=== PATIENT | female | born 1935 ===

== ENCOUNTER 2019-03-08 10:16 | Inpatient (IN) | payer BC ==
[~2019-03-08] VITALS: Ht 147.3 cm; Wt 49.4 kg
[~2019-03-08 10:16] MED LIST: ACETAMINOPHEN500 M3 ORAL
[2019-03-31] VITALS (15 sets, daily range): BP systolic 91–164; BP diastolic 42–88
--- NOTE | 2019-03-31 11:27 | Anethesia Preoperative Eval ---
Anesthesia Pre-op PMH/ROS General Date of Evaluation: Mar 31, 2019 Anesthesiologist: Martin ASA Score: ASA 3 Mallampati Score Class I : Soft palate, uvula, fauces, pillars visible Class II: Soft palate, uvula, fauces visible Class III: Soft palate, base of uvula visible Class IV: Only hard plate visible Mallampati Classification: Class II Surgeon: Boo Diagnosis: Left knee OA Surgical Procedure: Left TKR Anesthesia History: none Family History: no anesthesia problems Allergies: Coded Allergies: No Known Allergies (Unverified , 03/30/19) Medications: see eMAR Patient NPO?: Yes NPO Date: Mar 30, 2019 NPO Time: 22:00 Past Medical History Cardiovascular: Reports: HTN; Denies: CAD, [place], valve dz, arrhythmia, other Pulmonary: Denies: asthma, COPD, L[place], other Gastrointestinal/Genitourinary: Denies: GERD, CRI, ESRD, other Neurologic/Psychiatric: Reports: depression/anxiety; Denies: dementia, CVA, TIA, other Endocrine: Denies: DM, hypothyroidism, steroids, other HEENT: Denies: cataract (L), cataract (R), glaucoma, [place] (L), [place] (R), other Hematology/Immune: Denies: anemia, DVT, bleeding disorder, other Musculoskeletal/Integumentary: Reports: OA, other - lumbar stenosis; Denies: RA, DJD, DDD, edema PSxH Narrative: bilateral cataract sx Anesthesia Pre-op Phys. Exam Physician Exam see chart Constitutional: NAD Cardiovascular: RRR Respiratory: CTA Airway Exam Mallampati Score: Class II MO: full ROM: full Anesthesia Pre-op A/P Labs see chart Studies Pre-op Studies: EKG - sr Risk Assessment & Plan Assessment: ASA II Plan: GA vs SAB Status Change Before Surgery: No Pre-Antibiotics Drug: Kayla Holden MD Mar 31, 2019 11:27
[2019-03-31] MEDS ORDERED: Lidocaine 1% MPF 10mg/ml 5ml ONE (12:00)
[2019-03-31] MEDS ORDERED: Propofol 200mg/20ml IV ONE (12:00)
[2019-03-31] MEDS ORDERED: Midazolam 2mg/2ml Inj ONE (12:00)
[2019-03-31] MEDS ORDERED: fentaNYL 100 mcg/2 mL IV ONE (12:00)
[2019-03-31] MEDS ORDERED: NeoSporin Gu Irrig 1ml Amp IRRIG ONE ×2 (12:08→13:16)
[2019-03-31] MEDS ORDERED: Bacitracin 50000 Units Vial ONE (12:08)
[2019-03-31] MEDS ORDERED: Bupivacaine 0.5% Inj 30 ml vial INJ ONE (12:39)
[2019-03-31] MEDS ORDERED: NKM (12:42)
[2019-03-31] MEDS ORDERED: Morphine Sulfate PF 10 ML ONE (12:50)
--- NOTE | 2019-03-31 12:54 | Pre-Procedure Note/Attestation ---
Pre-Procedure Note/Attestation Complete Prior to Procedure Planned Procedure: left Procedure Narrative: left knee replacement Indications for Procedure Pre-Operative Diagnosis: left knee arthritis Attestation I attest that I discussed the nature of the procedure; its benefits; risks and complications; and alternatives (and the risks and benefits of such alternatives ), prior to the procedure, with the patient (or the patient's legal videotape sales representative). I attest that, if there was a reasonable possibility of needing a blood transfusion, the patient (or the patient's legal videotape sales representative) was given the [facility] standardized written summary, pursuant to the [place] Blood Safety Act ([place] Health and Safety Code # 1645, as amended). I attest that I re-evaluated the patient just prior to the surgery and that there has been no change in the patient's H&P, except as documented below: Antonio Haddad MD Mar 31, 2019 12:54
[2019-03-31] MEDS ORDERED: Sterile Water Irrig 1000ml IRRIG ONE (13:00)
[2019-03-31] MEDS ORDERED: LR 1000ml ONE (13:00)
[2019-03-31] MEDS ORDERED: Tranexamic Acid 500 MG in NS 55 ML IV SCH (13:00)
[2019-03-31] MEDS ORDERED: NS Irrig 1000ml ONE (13:00)
[2019-03-31] MEDS ORDERED: NS Irrig 4000ml IRRIG ONE (13:16)
[2019-03-31] MEDS ORDERED: NS Irrig 2000ml IRRIG ONE ×2 (13:16→14:00)
[2019-03-31] MEDS ORDERED: Bacitracin 50000 Units Vial IRRIG ONE (13:16)
[2019-03-31] MEDS ORDERED: Morphine Sulfate 2mg/ml Inj(IV/IM USE ONLY) IVP PRN ×2 (13:30)
[2019-03-31] MEDS ORDERED: LR 1000ml 1,000 ML IVLG SCH (13:37)
[2019-03-31] MEDS ORDERED: fentaNYL 100 mcg/2 mL IV PRN (13:45)
[2019-03-31] MEDS ORDERED: Metoclopramide 10mg/2ml Inj IVP PRN (13:45)
[2019-03-31] MEDS ORDERED: DiphenhydrAMINE 50mg/ml Inj IVP PRN (13:45)
[2019-03-31] MEDS ORDERED: Ketorolac 30mg Inj IV PRN (13:45)
[2019-03-31] MEDS ORDERED: LORazepam Inj 2mg/ml 1ml IV PRN (13:45)
[2019-03-31] MEDS ORDERED: Hydromorphone 0.5mg/0.5ml inj IVP PRN (13:45)
[2019-03-31] MEDS ORDERED: cloNIDine 1000mcg/10ml inj ONE (13:51)
--- NOTE | 2019-03-31 13:57 | Diagnostic Imaging Report ---
Indication: Left knee pain Technique: 3 views of the 03/31/2019 knee Comparison: None Findings: There is severe degenerative joint space narrowing of the medial compartment. There is degenerative remodeling and subchondral sclerosis of both the medial patellar and medial tibial articular surfaces. There are also degenerative changes of the patellofemoral compartment. No acute fractures. No dislocations. No definite suprapatellar effusion. Calcification projects posterior to the lateral proximal tibia, may be a bursal calcification. Impression: Degenerative changes, as described No definite acute bony trauma
--- NOTE | 2019-03-31 14:43 | Immediate Post-Op Evaluation ---
Immediate Post-Op Evalulation Immediate Post-Op Evalulation Procedure: Left total knee replacement Date of Evaluation: Mar 31, 2019 Time of Evaluation: 14:46 IV Fluids: 700 Blood Products: 0 Estimated Blood Loss: 50 Urinary Output: 100 Blood Pressure Systolic: 108 Blood Pressure Diastolic: 79 Pulse Rate: 70 Respiratory Rate: 18 O2 Sat by Pulse Oximetry: 100 Temperature (Fahrenheit): 98.1 Pain Score (1-10): 0 Nausea: No Vomiting: No Complications 0 Patient Status: awake, reacts, patent, none Hydration Status: adequate Drug: Ancef 1g Given Within 1 Hr of Incision: Yes Kayla Mcclelland MD Mar 31, 2019 14:43
[2019-03-31] MEDS ORDERED: HYDROcodone/Acetamin 10/325 tab ORAL PRN (16:00)
[2019-03-31] MEDS ORDERED: LORazepam 0.5mg tab ORAL PRN (16:00)
[2019-03-31] MEDS ORDERED: HYDROmorphone 1mg/ml Carpuject SUBQ PRN (16:00)
--- NOTE | 2019-03-31 16:30 | Diagnostic Imaging Report ---
Indication: Status post knee arthroplasty Technique: 2 views of the left knee Comparison: 03/31/2019 Findings: Interim total knee arthroplasty. Good anatomic alignment of the prosthesis. Overlying skin boy. Retained air from the surgical exposure is seen within the soft tissues. There is a knee immobilizer in place. Impression: Status post total knee arthroplasty. No unusual features
--- NOTE | 2019-03-31 16:35 | NUR ---
CASE MANAGEMENT: INITIAL REVIEW 83 YO F PRESENTED TO HOSPITAL FOR SURGERY SI:LEFT KNEE MEDIAL COMPARTMENT OA. T 97 HR 62 RR 18 B/P 164/88 SATS 99% ON RA NO LABS TODAY IS: OR MEDS PATIENT ADMITTED 03/31/2019 @ 0589 PATIENT TO BE DISCHARGED TO HOME ONCE MEDICALLY CLEARED. PLAN OF CARE: LEFT KNEE TOTAL REPLACEMENT Addendum: 03/31/19 at 1639 by Lena York CM INTERQUAL MET
--- NOTE | 2019-03-31 16:41 | NUR ---
NURSE NOTES: PATIENT ARRIVED FROM PACU ON BED WITH SON AT BEDSIDE. PATIENT AOX4. LEFT KNEE SURGICAL SITE C/D/I. KNEE IMMOBILIZER IN PLACE. CAP REFILL LESS THAN 3 SECS.MILD SENSATION NOTED TO HIP AREA BUT DENIES PAIN. HEAD TO TOE ASSESSMENT COMPLETED. BEDSIDE REPORT RECEIVED FROM [place] EXTENSION AGENT. PT AND FAMILY ORIENTED TO ROOM. BED IN LOWEST AND LOCKED POSITION. VSS. AFEBRILE.
--- NOTE | 2019-03-31 17:25 | NUR ---
NURSE NOTES: PLACED CALL TO DR. MARIE TO INFORM OF PATIENT'S ARRIVAL TO FLOOR. NO NEEDS AT THIS TIME.
[2019-03-31] MEDS: Docusate 100mg cap ORAL SCH (18:19)
[2019-03-31] MEDS: D5 1/2NS w/KCl 20mEq 1,000 ML IV SCH (18:20)
--- NOTE | 2019-03-31 18:41 | NUR ---
NURSE NOTES: PATIENT MORE AWAKE. TOLERATING REGULAR DIET. NO N/V NOTED. DENIES PAIN TO SURGICAL SITE.
--- NOTE | 2019-03-31 19:31 | NUR ---
HAND-OFF: Report given to PAULA ALVARENGA RN.
--- NOTE | 2019-03-31 19:35 | NUR ---
NURSE NOTES: Dr. Huang is here to see pt with new order for NS Bolus 500ml x 1.
--- NOTE | 2019-03-31 19:36 | Cardiology Progress Note ---
Assessment/Plan Assessment/Plan low bp will bolus ns for 500 cc will dicate note watch cbc in am [id number] Objective Last 24 Hour Vital Signs Date Time Temp Pulse Resp B/P (MAP) Pulse Ox O2 Delivery O2 Flow Rate FiO2 03/31/19 18:35 68 16 101/52 (68) 98 03/31/19 18:00 100/49 (66) 03/31/19 17:41 97.0 70 15 97/68 (78) 98 03/31/19 16:41 98.4 55 15 91/49 (63) 100 03/31/19 16:11 58 18 101/50 (67) 100 03/31/19 16:11 Nasal Cannula 2.0 03/31/19 16:00 97.8 54 24 105/42 100 Nasal Cannula 3 03/31/19 15:45 54 25 106/44 100 Nasal Cannula 3 03/31/19 15:30 57 23 105/45 100 Nasal Cannula 3 03/31/19 15:15 56 22 101/44 100 Nasal Cannula 3 03/31/19 15:00 62 20 102/42 100 Nasal Cannula 3 03/31/19 14:50 64 21 105/45 100 Nasal Cannula 3 03/31/19 14:45 72 20 97/50 100 Simple Mask 6 03/31/19 14:43 70 18 100 03/31/19 14:41 98.1 70 18 108/79 100 Simple Mask 6 03/31/19 12:37 Room Air 03/31/19 12:34 97.0 62 18 164/88 (113) 99 German Huang MD Mar 31, 2019 19:36
--- NOTE | 2019-03-31 19:36 | NUR ---
NURSE NOTES: Received report & pt from ELMA Munguia. Pt lying in bed, a&ox4, in room air, family member at bedside. No s/s of acute distress & no c/o pain at this time. Surgical dressing C/D/I. IV site intact with IVF running as ordered. CPM in place & tolerating 60 degrees. Bed in lowest position, call light within reach. Will continue to monitor.
[2019-03-31] MEDS: ceFAZolin sod 1 GM in D5W 55 ML IV SCH (20:19)
[2019-03-31] MEDS: Hydromorphone 0.5mg/0.5ml inj IVP PRN (21:43)
[2019-04-01] VITALS: BP 104/67
[2019-04-01 04:00] VITALS: BP 124/61
[2019-04-01] MEDS: ceFAZolin sod 1 GM in D5W 55 ML IV SCH (04:10)
[2019-04-01] MEDS: Hydromorphone 0.5mg/0.5ml inj IVP PRN (06:47)
[2019-04-01] MEDS: D5 1/2NS w/KCl 20mEq 1,000 ML IV SCH ×3 (07:10→13:29)
--- NOTE | 2019-04-01 07:32 | NUR ---
HAND-OFF: Report given to ELMA Wilson. Pain med & zofran given. Rounds done. Pt in stable condition.
--- NOTE | 2019-04-01 07:35 | NUR ---
NURSE NOTES:BEDSIDE ROUNDS WITH PAULA WILLS.PATIENT A/OX4,ROOM AIR,PAIN 03/20,WAS JUST MEDICATED,LEFT KNEE DRSNG.C/D/I.ABLE TO WIGGLE TOES.IV SITE PATENT.DENTON WITH GOOD OUTPUT.WILL CONTINUE PLAN OF CARE.SON AT BEDSIDE FOR SUPPORTIVE CARE.
[2019-04-01 08:00] VITALS: BP 106/64
[2019-04-01] MEDS ORDERED: Hydromorphone 0.5mg/0.5ml inj IVP PRN ×2 (08:00→10:00)
[2019-04-01] MEDS ORDERED: HYDROcodone/Acetamin 5/325 tab ORAL SCH (08:15)
[2019-04-01] MEDS: Docusate 100mg cap ORAL SCH ×2 (08:43→18:25)
[2019-04-01 08:51] LABS: BASOPHILS % (AUTO) 0.7 % (0.0-2.0); EOSINOPHILS % (AUTO) 0.2 % (0.0-3.0); HEMATOCRIT 32.6 % (37.0-47.0); HEMOGLOBIN 11.2 G/DL (12.0-16.0); LYMPHOCYTES % (AUTO) 17.7 % (20.0-45.0); MEAN CORPUSCULAR VOLUME 94 FL (80-99); MONOCYTES % (AUTO) 10.2 % (1.0-10.0); NEUTROPHILS % (AUTO) 71.2 % (45.0-75.0); PLATELET COUNT 181 K/UL (150-450); RED BLOOD COUNT 3.48 M/UL (4.20-5.40); RED CELL DISTRIBUTION WIDTH 13.2 % (11.6-14.8); WHITE BLOOD COUNT 10.5 K/UL (4.8-10.8)
[2019-04-01 08:55] LABS: INR 1.2 (0.9-1.1)
--- NOTE | 2019-04-01 09:48 | 48 Hour Post Anesthesia Eval ---
Post Anesthesia Evaluation Procedure: Left total knee replacement Date of Evaluation: Apr 01, 2019 Time of Evaluation: 09:47 Blood Pressure Systolic: 108 0: 72 Pulse Rate: 68 Respiratory Rate: 18 Temperature (Fahrenheit): 97.6 O2 Sat by Pulse Oximetry: 98 Airway: patent Nausea: No Vomiting: No Pain Intensity: 2 Hydration Status: adequate Cardiopulmonary Status: stable Mental Status/LOC: patient returned to baseline Follow-up Care/Observations: n/a Post-Anesthesia Complications: none Follow-up care needed: N/A Rashad Nino MD Apr 01, 2019 09:48
[2019-04-01] MEDS: Enoxaparin 40mg Inj SUBQ SCH (10:01)
--- NOTE | 2019-04-01 10:41 | Cardiology Progress Note ---
Assessment/Plan Assessment/Plan low bp knee osteoarthritis postop pain option regardign dc snf vs cri vs if has help to be dicd homw will d/w dr ervin bp is stable hgb is fine has jsut gotten out of bed parnell to be dcd d/w sonn dvt ppx lovenox Subjective Cardiovascular: Denies: chest pain, lightheadedness Respiratory: Denies: shortness of breath Gastrointestinal/Abdominal: Reports: nausea Genitourinary: Denies: burning Objective Last 24 Hour Vital Signs Date Time Temp Pulse Resp B/P (MAP) Pulse Ox O2 Delivery O2 Flow Rate FiO2 04/01/19 09:48 68 18 98 04/01/19 09:14 97.6 04/01/19 08:00 97.7 82 18 106/64 (78) 94 04/01/19 07:35 Room Air 04/01/19 04:00 97.8 79 18 124/61 (82) 96 04/01/19 00:00 98.6 87 17 104/67 (79) 95 03/31/19 21:00 Room Air 03/31/19 20:00 97.2 72 18 113/53 (73) 99 03/31/19 18:35 68 16 101/52 (68) 98 03/31/19 18:00 100/49 (66) 03/31/19 17:41 97.0 70 15 97/68 (78) 98 03/31/19 16:41 98.4 55 15 91/49 (63) 100 03/31/19 16:11 58 18 101/50 (67) 100 03/31/19 16:11 Nasal Cannula 2.0 03/31/19 16:00 97.8 54 24 105/42 100 Nasal Cannula 3 03/31/19 15:45 54 25 106/44 100 Nasal Cannula 3 03/31/19 15:30 57 23 105/45 100 Nasal Cannula 3 03/31/19 15:15 56 22 101/44 100 Nasal Cannula 3 03/31/19 15:00 62 20 102/42 100 Nasal Cannula 3 03/31/19 14:50 64 21 105/45 100 Nasal Cannula 3 03/31/19 14:45 72 20 97/50 100 Simple Mask 6 03/31/19 14:43 70 18 100 03/31/19 14:41 98.1 70 18 108/79 100 Simple Mask 6 03/31/19 12:37 Room Air 03/31/19 12:34 97.0 62 18 164/88 (113) 99 General Appearance: alert Neck: supple Cardiovascular: normal rate Respiratory/Chest: lungs clear Abdomen: normal bowel sounds, non tender, soft Extremities: no swelling Intake and Output 03/31/19 04/01/19 19:00 07:00 Intake Total 1050 ml 1140 ml Output Total 150 ml 1300 ml Balance 900 ml -160 ml Intake Oral 0 ml 240 ml IV Total 1050 ml 900 ml Output Urine Total 100 ml 1300 ml Estimated Blood Loss 50 ml # Voids 1 Laboratory Tests Test 04/01/19 07:37 White Blood Count 10.5 K/UL (4.8-10.8) Red Blood Count 3.48 M/UL (4.20-5.40) L Hemoglobin 11.2 G/DL (12.0-16.0) L Hematocrit 32.6 % (37.0-47.0) L Mean Corpuscular Volume 94 FL (80-99) Mean Corpuscular Hemoglobin 32.2 PG (27.0-31.0) H Mean Corpuscular Hemoglobin Concent 34.4 G/DL (32.0-36.0) Red Cell Distribution Width 13.2 % (11.6-14.8) Platelet Count 181 K/UL (150-450) Mean Platelet Volume 6.3 FL (6.5-10.1) L Neutrophils (%) (Auto) 71.2 % (45.0-75.0) Lymphocytes (%) (Auto) 17.7 % (20.0-45.0) L Monocytes (%) (Auto) 10.2 % (1.0-10.0) H Eosinophils (%) (Auto) 0.2 % (0.0-3.0) Basophils (%) (Auto) 0.7 % (0.0-2.0) Prothrombin Time 12.5 SEC (9.30-11.50) H Prothromb Time International Ratio 1.2 (0.9-1.1) H German Huang MD Apr 01, 2019 10:41
[2019-04-01 12:00] VITALS: BP 131/85
[2019-04-01] MEDS: HYDROcodone/Acetamin 5/325 tab ORAL PRN ×3 (12:03→20:46)
--- NOTE | 2019-04-01 13:59 | NUR ---
HAND-OFF: Report given to .KOBY WILLS.RE:CONTINUITY OF CARE.PATIENT STABLE ON REPORT.
--- NOTE | 2019-04-01 15:00 | NUR ---
NURSE NOTES: Received report from Katie WILLS. Patient is awake alert and oriented x4, no acute distress noted. Noted right hand IV out, patient accidentally self removed, new 22g RFA IV started. Dressing clean, dry, intact. Patient reporting pain, will medicate per order when due. Patient is on CPM now and tolerating well. Patient attempted to get up with physical therapy, but felt light headed when attempting to walk so PT put patient back in bed and on CPM. VS are stable. Patient and her son who is at bedside updated on plan of care. Side rails upx3, bed low and locked, call light in reach. Will continue to monitor.
[2019-04-01 16:00] VITALS: BP 142/106
--- NOTE | 2019-04-01 16:09 | NUR ---
PT Note PT erlin completed, treatment initiated. Patient has muscle weakness and decreased left knee ROM. She requires extensive assist in her mobility and gait. Patient needs PT services to increase her ROM and muscle strength to improve her functional mobility and gait. Addendum: 04/01/19 at 1610 by MONIKA GAMBOA PT Amended: Links added.
--- NOTE | 2019-04-01 16:14 | NUR ---
CASE MANAGEMENT: REVIEW 04/01/2019 SI:LEFT KNEE MEDIAL COMPARTMENT OA. T 97.8 HR 79 RR 18 B/P 124/61 SATS 96% ON RA PT 12.5 INR 1.2 IS: IVF @ 50 ml/HR PEPCID PO BID LOVENOX SUBQ QD MED/SURG STATUS PATIENT TO BE DISCHARGED TO HOME ONCE MEDICALLY CLEARED. PLAN OF CARE: POST OP CARE
[2019-04-01] MEDS ORDERED: Tubing IV Secondary IV ONE (16:30)
[2019-04-01] MEDS ORDERED: NS 500ML ONE (16:30)
--- NOTE | 2019-04-01 19:36 | Cardiology Report ---
APPROVED REPORT EKG Measurement Heart [id number] Normal sinus rhythm Anterior infarct, age undetermined Abnormal ECG
--- NOTE | 2019-04-01 19:45 | Consultation ---
DATE OF CONSULTATION: 04/01/2019 CONSULTING PHYSICIAN: Khris Padgett M.D. REFERRING PHYSICIAN: nAtonio Haddad M.D. REASON FOR CONSULTATION: Acute pain consult. HISTORY OF PRESENT ILLNESS: Dear Dr. Antonio Haddad, Thank you kindly for consulting me to evaluate and render an opinion as to how to proceed in the management of the patient's acute postoperative left knee pain after left total knee arthroplasty surgery. On your request, I saw the patient to help with her pain control postoperatively. I saw the patient at bedside with her son, who is a physician and surgeon. I discussed the case in detail with yourself, Dr. Haddad along with milling planer operator Dr. Huang. I spent over 75 minutes in consultation with an additional 30 minutes in medical record review. PAST MEDICAL HISTORY: 1. Acute postoperative left knee pain status post left total knee arthroplasty by Dr. Antonio Haddad, March 2019. 2. Elderly age. 3. Mild anxiety. PAST SURGICAL HISTORY: Cataract surgery. ALLERGIES: No known drug allergies. MEDICATIONS: At home Pepcid, ibuprofen. REVIEW OF SYSTEMS: Per Dr. Huang. FAMILY HISTORY: . SOCIAL HISTORY: The patient is accompanied at the bedside by her son, who is a surgeon. The son lives in [place]. The mother lives in [place] and has no other family locally. PHYSICAL EXAMINATION: VITAL SIGNS: Age 83. Height 4 feet 10 inches, weight 49 kilograms. Body mass index 23. Afebrile, pulse 79, respirations 18, blood pressure 124/61, oxygen saturation 96% on room air. GENERAL: This is an 83-year-old woman who appears her stated age. She is alert and oriented x3 and conversing well. CARDIOPULMONARY: Deferred to Dr. Huang. EXTREMITIES: Left knee shows pain with range of motion. Sequential compression pneumatic devices in place. A detailed neurologic exam per Dr. Antonio Haddad. LABORATORY AND DIAGNOSTIC DATA: Preoperative laboratory studies from January 17, 2019 shows white count 9, hematocrit 41, platelets 371. Glucose 150, BUN 17, creatinine 0.6, sodium 140, potassium 4.3, chloride 102, bicarb 26, calcium 9.1. Total bilirubin 6.8 and albumin 3.7. Total bilirubin 0.3, alkaline phosphatase 47, AST 23, ALT 18. INR 1.2 and PTT 24. A 12-lead EKG shows left axis deviation, heart rate 77. IMPRESSION: 1. Acute postoperative left knee pain status post left total knee arthroplasty by Dr. Antonio Haddad, March 2019. 2. Elderly age. 3. Mild anxiety. TREATMENT RECOMMENDATIONS: I spoke with the hospital pharmacist, Amanda. I saw the patient at bedside with her son after a detailed discussion over the telephone with her son. I discussed the case with the surgeon, Dr. Haddad along with Dr. Huang, Cardiology. Lovenox will start on postop day #1, for DVT prophylaxis. An incentive spirometer is at the bedside to encourage good pulmonary toilet. The patient will be started on Pepcid b.i.d. 20 mg for GI ulcer prophylaxis. Son stated that the patient has been using [place] 10 mg tablets at home preoperatively. Since she is here in the hospital setting with good observation, I will select dose of 5 mg hydrocodone orally every 3 hours p.r.n. for pain level 1 to 5. I spoke with the recovery room nurse and the patient did tolerate Dilaudid 0.5 mg intravenously without oversedation or respiratory depression. I will order low dose 0.4 mg intravenously every two hours p.r.n. for pain level 6/10. The son does state the patient does have some anxiety. However, the son note that the patient has shown few signs of disorientation in the perioperative period. I was considering using a low dose Ativan for anxiolysis. However, in light of the reports of disorientation, I will discontinue the Ativan which I previously considered. Hopefully the frequent dosing of oral [place] with intravenous low-dose Dilaudid will be adequate for analgesia. The patient chronically uses ibuprofen in rather high doses at home. The patient's preoperative creatinine is 0.6 normal. I have asked Dr. Haddad to consider adding Celebrex 100 mg b.i.d. as a baseline anti-inflammatory analgesic to help lower her narcotic requirements. Dr. Haddad will decide if the risk of postoperative bleeding directly from the use of NSAIDs will be relatively contraindicated at this time. The patient is tolerating breakfast so I will decrease her IV fluid rate to [address] Huang will manage the patient's multiple medical issues. The son states the patient lives alone and would benefit from being transferred to a acute rehabilitation facility if her insurance permits. I will defer this issue to Dr. Haddad. Khris Padgett M.D. DR: Sarah JOB#: [id number] CC:
--- NOTE | 2019-04-01 19:50 | NUR ---
HAND-OFF: Report given to Linnea WILLS. Patient is in stable condition.
--- NOTE | 2019-04-01 19:51 | NUR ---
NURSE NOTES: Received report & pt from ELMA Adame. Pt lying in bed, a&ox4, in room air. No s/s of acute distress & c/o 6/10 pain at this time. Will give PRN pain med when due. Surgical dressing C/D/I. IV site intact with IVF running as ordered. CPM in place; will remove CPM tonight. Bed in lowest position, call light within reach. Will continue to monitor.
[2019-04-01 20:00] VITALS: BP 153/80
--- NOTE | 2019-04-01 20:15 | Consultation ---
DATE OF CONSULTATION: 03/31/2019 CARDIOLOGY AND INTERNAL MEDICINE CONSULTATION CONSULTING PHYSICIAN: German Huang M.D. REFERRING PHYSICIAN: Antonio Haddad M.D. REASON FOR REFERRAL: Postoperative medical care. HISTORY OF PRESENT ILLNESS: This is an elderly female who has had left knee medial compartment osteoarthritis and underwent surgery by Dr. Antonio Beaulieu, and I am seeing her postoperatively. She does not really have any chest pain or shortness of breath. No PND. No orthopnea. No palpitations. No sore throat. She did have some nausea with anesthesia and medications. She is in bed at this time and does not really seem to have any issues and the nursing staff indicated that the blood pressure was low earlier. She has been receiving some intravenous fluids although she seems to be better at the time of my evaluation. PAST MEDICAL HISTORY: Fairly unremarkable. She did take some antihypertensive medications a couple of years ago, but has been mostly off of those medications as her blood pressure has been fine. There is no other medical issue. No diabetes or high blood pressure. No heart, lung, kidney, liver, or thyroid problems, anemia, or HIV. She does have arthritis. No other medical problems. ALLERGIES: She is not allergic to any medications. SOCIAL HISTORY: She does not smoke or drink alcoholic beverages and she is otherwise healthy. PHYSICAL EXAMINATION: GENERAL: Shows to be an elderly female, in no respiratory distress. NECK: Supple. No jugular venous distention. LUNGS: Appear to be clear to auscultation and percussion. CARDIAC: S1 is normal. S2 is normal. Regular rate and rhythm. No heaves or thrills. ABDOMEN: Soft and nontender. EXTREMITIES: Right, there is no edema. She has pneumatic compression stockings on. Left, she has Saurav wrapped. LABORATORY AND DIAGNOSTIC DATA: Laboratories are basically from preop, white count was 9.3, hemoglobin 13.1, and platelet count of 371. Blood sugar was 151, but apparently that may have not been fasting in origin. Sodium is 140, potassium 4.3, BUN of 17, and creatinine 0.8. INR of 1.2 and PTT of 20. EKG looks like sinus rhythm. ASSESSMENT AND PLAN: 1. Left knee medial compartment osteoarthritis. 2. Postoperative pain. 3. Hypotension, likely related to sedatives and medications. This patient was seen in medical cardiac consultation. She looks well. She has no signs of coronary syndrome. Her blood pressure is already improved with the fluid that she was receiving, and fluids will be administered, extra bolus will be administered. I will repeat her EKG in the morning. She has laboratories ordered to make sure that she does not drop her hemoglobin overnight, post knee surgery. Otherwise, the DVT prophylaxis will be resumed tomorrow, and incentive spirometer was discussed with the patient, and Rosales catheter likely will be removed tomorrow as well. German Huang M.D. DR: ABBI JOB#: [id number] CC:
[2019-04-02] VITALS (7 sets, daily range): BP systolic 132–174; BP diastolic 76–102
[2019-04-02] MEDS: HYDROcodone/Acetamin 5/325 tab ORAL PRN ×4 (00:33→16:58)
--- NOTE | 2019-04-02 01:15 | NUR ---
NURSE NOTES: [place] 5/325 PO PRN given @ 0033. Per pt, no relief & still in pain. [place] was just given less than an hour ago. Son requesting stronger pain med Dilaudid IVP PRN to be given to pt. Will give PRN Dilaudid at least 1hr after [place] was given.
--- NOTE | 2019-04-02 05:30 | NUR ---
NURSE NOTES: Left knee dressing changed. Pt tolerated very well.
--- NOTE | 2019-04-02 07:23 | NUR ---
HAND-OFF: Report given to ELMA Adame. Rounds done. Pt in stable condition.
[2019-04-02 07:31] LABS: INR 1.2 (0.9-1.1)
--- NOTE | 2019-04-02 07:50 | NUR ---
NURSE NOTES: Received report from Linnea WILLS. Patient is awake alert and oriented, up to chair having breakfast. Rosales to gravity drainage, clear, yellow urine noted. Patient reporting pain rated 5/10 in left knee, will medicate per order when medication is due, patient is requesting [place]. Left knee dressing changed by retail shift leader nurse. IV asymptomatic and running IVF per order. Patient and her son at bedside updated on plan of care for the day. Call light within reach, patient and family reminded to call for assistance as needed. Will continue to monitor.
[2019-04-02] MEDS: Enoxaparin 40mg Inj SUBQ SCH (09:10)
[2019-04-02] MEDS: Docusate 100mg cap ORAL SCH ×2 (09:10→18:47)
--- NOTE | 2019-04-02 09:20 | NUR ---
NURSE NOTES: Noted small serosanguinous stain on dressing, circled, dated, and timed stain. Will monitor for any increase in staining/bleeding.
--- NOTE | 2019-04-02 10:16 | Cardiology Progress Note ---
Assessment/Plan Assessment/Plan low bp resolved knee osteoarthritis postop pain wants to gohome to day with home health message left for dr ervin bp is stable walked parnell to be dcd d/w son dvt ppx lovenox for 10 day post op t home dressing lood clear and dry Subjective Cardiovascular: Denies: chest pain, lightheadedness, palpitations Respiratory: Denies: shortness of breath Gastrointestinal/Abdominal: Denies: abdominal pain Subjective walked to the elevatr wants to go home today Objective Last 24 Hour Vital Signs Date Time Temp Pulse Resp B/P (MAP) Pulse Ox O2 Delivery O2 Flow Rate FiO2 04/02/19 07:58 97.8 86 20 132/80 (97) 98 04/02/19 03:29 97.6 84 18 158/81 (106) 94 04/02/19 00:00 98.8 107 18 143/86 (105) 98 04/01/19 21:00 Room Air 04/01/19 20:00 99.7 95 17 153/80 (104) 96 04/01/19 16:00 98.6 75 18 142/106 (118) 94 04/01/19 12:00 98.0 94 18 131/85 (100) 100 General Appearance: no apparent distress, alert Neck: supple Cardiovascular: normal rate Respiratory/Chest: lungs clear Abdomen: normal bowel sounds, non tender, soft Extremities: no swelling Intake and Output 04/01/19 04/02/19 19:00 07:00 Intake Total 550 ml 840 ml Output Total 1600 ml 1400 ml Balance -1050 ml -560 ml Intake Oral 400 ml 240 ml IV Total 150 ml 600 ml Output Urine Total 1600 ml 1400 ml Laboratory Tests Test 04/02/19 04:55 Prothrombin Time 12.7 SEC (9.30-11.50) H Prothromb Time International Ratio 1.2 (0.9-1.1) H Microbiology Date/Time Source Procedure Growth Status 03/31/19 11:55 Nasal Nares MRSA Culture - Final NO METHICILLIN RESISTANT STAPH AUREUS... Complete German Huang MD Apr 02, 2019 10:16
--- NOTE | 2019-04-02 10:32 | NUR ---
NURSE NOTES: Rosales catheter removed per MD order. Patient tolerated well. Bedside commode placed at bedside, patient and her son educated to call for RN when patient is ready to void.
--- NOTE | 2019-04-02 11:15 | Progress Note ---
DATE: 04/02/2019 ACUTE PAIN MANAGEMENT PHYSICIAN PROGRESS NOTE MEDICATIONS: Medication administration record reviewed. Medications include Tylenol, Mylanta, Benadryl, Colace, Lovenox, Pepcid, Blanch, Dilaudid, Zofran. LABORATORY STUDIES: From yesterday, April 01, 2019 shows white count 11, hematocrit 33, platelets 181,000. INR 1.2. VITAL SIGNS: Afebrile, pulse 86, respirations 20, blood pressure 152/80, oxygen saturation 98% on room air. I saw the patient at bedside with her son, who is providing excellent support and assistance with ambulation. This morning, the son is helping the mother/patient move from the bed to the chair. A front-wheeled walker is being used. Yesterday, the patient was not able to ambulate out of bed for physical therapy due to dizziness, however, clearly this morning, the patient is doing better. She is alert and oriented x3. She is smiling. She has been using her hydrocodone 5 mg tablets with good efficacy. The patient is using rare Dilaudid injections, however, I am comfortable that the Blanch will be adequate. I did leave a prescription for Blanch 5 mg tablets along with anti-inflammatory, Celebrex 100 mg b.i.d. for outpatient usage. Dr. Haddad did permit the patient to use Celebrex. I did certified drug counselor the patient and the son to avoid ibuprofen instead of using Celebrex.; that is, not to use both Celebrex and ibuprofen at the same time. The son states that he only works 2 days per week and will be available to help the patient rehabilitate and to avoid falling. Additionally, the patient's daughter is flying in from the [facility] to assist as well. The patient has been using her CPM device. The son will contact Dr. Haddad's office to arrange for home CPM usage. The son has ordered a front-wheeled walker. The patient is using Lovenox for DVT prophylaxis, and has been compliant using the incentive spirometer. I believe the current analgesic regimen is adequate. I will defer discharge planning to the son to discuss with the surgeon, Dr. Haddad, and Dr. Huang, who is managing the patient's medical issues. Khris Padgett M.D. DR: Padmini JOB#: [id number] CC:
--- NOTE | 2019-04-02 11:18 | Cardiology Report ---
APPROVED REPORT EXAM: Two-dimensional and M-mode echocardiogram with Doppler and color Doppler. INDICATION Tachycardia M-Mode DIMENSIONS IVSd0.9 (0.7-1.1cm)Left Atrium (MM)3.7 (1.6-4.0cm) LVDd4.8 (3.5-5.6cm)Aortic Root3.1 (2.0-3.7cm) PWd0.7 (0.7-1.1cm)Aortic Cusp Exc.1.8 (1.5-2.0cm) LVDs2.9 (2.5-4.0cm) PWs1.3 cm Normal left ventricular chamber size, systolic function and wall motion. Left ventricular ejection fraction estimated to be 60 %. No evidence of left ventricular hypertrophy. Anterior Echo-free space, may be due to pericardial fat or effusion. All other cardiac chamber sizes are within normal limits. Focal aortic valve sclerosis with adequate cusp excursion. Thickened mitral valve leaflets with normal excursion. Mild mitral annulus and aortic root calcification. Normal pulmonic valve structure. Normal tricuspid valve structure. IVC is normal in size with physiological collapse. A color flow and spectral Doppler study was performed and revealed: Mild to moderate aortic regurgitation. Mild mitral regurgitation. Mitral diastolic velocities suggest mild left ventricular diastolic dysfunction (Grade I). Mild to moderate tricuspid regurgitation. Tricuspid systolic velocities suggests peak right ventricular systolic pressure of 53 mmHg, consistent with moderate pulmonary hypertension. Trace pulmonic regurgitation present.
--- NOTE | 2019-04-02 11:30 | NUR ---
NURSE NOTES: Patient voided clear, yellow urine on bedside commode. Also had bowel movement x1. No difficulty with voiding reported by patient.
--- NOTE | 2019-04-02 12:42 | NUR ---
NURSE NOTES: Called office of Dr. Beaulieu, called number provided by office voice message to reach Dr. Beaulieu for discharge order. Spoke with hvac sales representative from [facility] who stated he will have Dr. Beaulieu paged. Awaiting callback from
--- NOTE | 2019-04-02 13:43 | General Progress Note ---
Progress Note Progress Note Doing great nvi intact xrays perfect stable continue therapy dc and [place] tomm drg change Antonio Haddad MD Apr 02, 2019 13:43
--- NOTE | 2019-04-02 13:46 | NUR ---
NURSE NOTES: Received discharge order from Dr. Beaulieu. Per , ok to discharge without home health arrangements being made yet, patient and her son will follow up in Dr. Beaulieu's office tomorrow and stated home physical therapy arrangements can be made if needed.
[2019-04-02] MEDS ORDERED: CELEBREX100 MG ORAL (15:26)
[2019-04-02] MEDS ORDERED: NORCO 5-325 TA1 EACH ORAL (15:26)
[2019-04-02] MEDS ORDERED: LOVENOX10 M4 SUBQ (15:59)
--- NOTE | 2019-04-02 16:49 | NUR ---
DISCHARGE PLANNING: NOTE CLINICALS FAXED TO [facility] T [phone] F [phone] PROGRESSIVE 1999 T [phone] F [phone] PRIMARY CM WILL F/U Addendum: 04/02/19 at 1848 by Lena York CM PROGRESSIVE 1999 CANNOT ACCEPT THIS PATIENT Addendum: 04/02/19 at 1916 by Lena York CM PROGRESSIVE 200 CANNOT ACCEPT THIS PATIENT PER SHER
--- NOTE | 2019-04-02 16:53 | NUR ---
NURSE NOTES: Per Dr. Huang, ok to discharge patient without home health arrangements being made yet as long as case management follows up with arrangements. Called case fitter Lena and case fitter stated home health arrangements are being made and patient's family will be contacted regarding arrangements after discharge.
--- NOTE | 2019-04-02 17:41 | NUR ---
NURSE NOTES: Called Dr. Huang and reported to MD patient's increase in blood pressure. MD gave order for Lisinopril 5mg x1. MD stated as long as patient's blood pressure is below 160 systolic, she may be discharged.
[2019-04-02] MEDS ORDERED: Lisinopril 2.5mg tab ORAL SCH (17:45)
--- NOTE | 2019-04-02 19:10 | NUR ---
NURSE NOTES: Patient discharged. No acute distress on discharged. Discharge education/handouts and medications reviewed with patient and her son Tiburcio, both patient and her son report understanding of provided education. Education provided on how to administer Lovenox subcutaneous injection and patient's son reports understanding of provided education. Prescriptions given to patient's son, all belongings accounted for. Patient's son stated they have walker at home already and will get bedside commode per recommendation from physical therapy. Case management to follow up regarding home health. Patient's blood pressure reassessed and below 160 systolic. IV removed intact. All discharge paperwork signed by patient's son Tiburcio. Patient and her son escorted off unit to private vehicle via wheelchair accompanied by RN.
--- NOTE | 2019-04-04 18:46 | Discharge Summary ---
Discharge Summary Hospital Course Date of Admission Mar 31, 2019 at 10:46 Date of Discharge Apr 02, 2019 at 19:10 Admitting Diagnosis left knee osteoarthritis Reason for Hospitalization: elective surgery JOAN Nicholson is a 83 year old female who was admitted on Mar at 10:46 for Left Knee Medial Compartment Osteoarthritis Consultations Dr Huang - IM/cardio Dr Padgett - pain specialist Procedures s/p 03/31/19 by Antonio Cervantes Left knee replacement Hospital Course status post surgery course of recovery uneventful initially IV fluids s/p perioperative antibiotics neurovascular status closely monitored, stable initial hypotension postoperatively -resolved incision clean dry and intact with dressing pain management addressed pain specialist followed; pain controlled hemodynamically stable ambulated with PT fall precautions maintained; safe for ambulation DVT prophylaxis provided, discharged on Lovenox for 10 more days at home use of incentive spirometry was encouraged while in the bed tolerated diet , IV fluids discontinued Rosales catheter discontinued, voided freely GI prophylaxis provided antiemetics were on board as needed blood pressure was managed with clonidine and remained stable blood sugar was closely monitored bowel regimen instituted patient was stable for discharge discharge instructions provided follow up with surgeon as outpatient as advised by surgeon FINAL DIAGNOSES Left knee medial compartment osteoarthritis s/p left knee replacement Discharge Medications Continued Medications: Celecoxib* (Celebrex*) 100 Mg Capsule 100 MG ORAL BID, #30 CAP (This prescription has been renewed) Enoxaparin* (Lovenox*) 40 Mg/0.4 Ml Inj 40 MG SUBQ DAILY for 10 Days, #10 (This prescription has been renewed) Hydrocodone Bit/Acetaminophen 5-325* ([place] 5-325*) 1 Each Tablet 1 TAB ORAL Q4H PRN for For Pain, #40 TAB 0 Refills (This prescription has been renewed) Discharge Condition Upon Discharge: stable Discharge Disposition Patient was discharged to Discharge Instructions Discharge Instructions Special Instructions I have been assigned to complete a D/C Summary on this account. I was not involved in the patient management Smiley Birmingham NP Apr 04, 2019 18:46
--- NOTE | 2019-04-09 12:42 | NUR ---
CASE MANAGEMENT: CM review and clinical information (face sheet/ ER MD notes/ H&P) faxed to [facility] @ [phone]. REF# [id number]
--- NOTE | 2019-04-10 01:15 | Operative Note - Dictated ---
DATE OF OPERATION: 03/31/2019 NOTE: POOR AUDIO PREOPERATIVE DIAGNOSIS: End-stage osteoarthritis of the knee with deformity. POSTOPERATIVE DIAGNOSIS: End-stage osteoarthritis of the knee with deformity. PROCEDURE: Left total knee replacement with Brigitte knee. SURGEON: Antonio Haddad M.D. DIRECTOR UNIVERSITY: Unknown. PREOPERATIVE NOTE: This is a pleasant lady who has been having issues with her knee with deformity, continued pain. I explained to her the surgery and the risks being infection, bleeding, anesthetic risk, nerve or vessel damage. The patient agreed. Consents were obtained. OR NOTE: Under the benefit of endotracheal intubation, general anesthetic, spinal anesthetic, knee prepped and draped in appropriate manner. The patient was given antibiotics. A midline incision was made, incised through and everted the patella making anterior cut, posterior cut, anterior and posterior chamfer cuts with respect to the femoral canal area of 3 degrees of external rotation. I then made 2 mm off the low side, which was medial. I prepped the inner aspects of the tibial tubercle. was prepped and draped. tibia. I then irrigated the wound copiously everted along patella. Cemented component with the stem of femur. Femoral component was as well as poly. We removed excess cement. I irrigated the wound copiously with pulse lavage and we then proceeded to knee with full range of motion. Full stability throughout all ranges. I was very pleased. Knee alignment was perfect. The patient went to recovery room in stable condition. Neurovascularly intact. X-rays looked perfect. There were no complications. Antonio Haddad M.D. DR: Atul JOB#: [id number] CC:
== END 2019-04-02 19:10 | disposition home or self-care (01) | DRG 470 ==
LOC: EDBD 12:00 → SDSOVERFLO 03-31 10:46 → 3E 03-31 16:11
PROC: 0SRD0J9 Replacement of Left Knee Joint with Synthetic Substitute, Cemented, Open Approach (ICD-10-PCS; principal; 2019-03-31 12:00)
DX: M17.12 Unilateral primary osteoarthritis, left knee (principal); G89.18 Other acute postprocedural pain; I95.2 Hypotension due to drugs; T42.75XA Adverse effect of unspecified antiepileptic and sedative-hypnotic drugs, initial encounter; F41.9 Anxiety disorder, unspecified
CPT/HCPCS: 36415; 85025; 85610; 86850; 86900; 86901; 86920; 87081; 93005; 93306; 94003; 94150; J2250; J2405